=== PATIENT | female | born 1995 | race Caucasian/White ===

== ENCOUNTER 2017-09-01 13:53 | Emergency (ER) | payer OTHER ==
[~2017-09-01] VITALS: Ht 160 cm; Wt 72.6 kg
[2017-09-01] MEDS ORDERED: METOPROLOL SUCC25 MG PO (14:11)
[2017-09-01] MEDS ORDERED: CYCLOBENZAPRINE5 MG PO (15:48)
[2017-09-01] MEDS ORDERED: IBUPROFEN600 MG PO (15:48)
== END 2017-09-01 16:08 | disposition home or self-care (01) ==
LOC: ED 13:53
DX: S39.011A Strain of muscle, fascia and tendon of abdomen, initial encounter (principal); Z88.6 Allergy status to analgesic agent; X58.XXXA Exposure to other specified factors, initial encounter
CPT/HCPCS: 74176; 81001; 84703; 99284

== ENCOUNTER 2017-10-06 06:49 | Emergency (ER) | payer OTHER ==
[~2017-10-06] VITALS: Ht 160 cm; Wt 72.6 kg
--- OUTSIDE RECORDS SUMMARY | ~2017-10-06 | XMS | Clinical Summary ---
Demographics + + + | Address | [address] | | | [place] [address] | + + + | Home Phone | | + + + | Preferred Language | Unknown | + + + | Marital Status | Single | + + + | Uatsdin Affiliation | NON | + + + | Race | or | + + + | Ethnic Group | Not or | + + + Author + + + | Author | [facility] | + + + | Organization | [facility] | + + + | Address | Unknown | + + + | Phone | Unavailable | + + + Support + + + + + | Name | Relationship | Address | Phone | + + + + + | CONNOR LORD | ECON | [address] | | | [place] | | [place] [address] | | + + + + + | KYLER LORD | ECON | [address] | | | [place] | | [id number] | | | | | [address] | | + + + + + Care Team Providers + +------+ + | Care Account Support Manager Name | Role | Phone | + +------+ + | Doroteo Rucker PA-C | PP | | + +------+ + Source Comments [facility] is fully live [facility] both [facility] and [facility] Allergies + + + + + + | Active Allergy | Reactions | Severity | Noted | Comments | | | | | Date | | + + + + + + | Ketorolac | Rash | | 05/12/19 | | | | | | 17 | | + + + + + + Current Medications + + + +---------+------+------+-------+ | Prescription | Sig. | Disp. | Refills | Star | End | Statu | | | | | | t | Date | s | | | | | | Date | | | + + + +---------+------+------+-------+ | etonogestrel | 1 Device by | | | | | Activ | | (IMPLANON) 68 mg | subdermal route | | | | | e | | subdermal implant | once. | | | | | | + + + +---------+------+------+-------+ | naproxen 375 mg | Take 1 tablet by | 28 | 0 | 10/2 | | Activ | | oral tablet | mouth two times | tablet | | 7/20 | | e | | | daily. | | | 17 | | | + + + +---------+------+------+-------+ | acetaminophen 325 | Take 1 tablet by | 30 | 0 | 10/2 | | Activ | | mg oral tablet | mouth every four | tablet | | 720 | | e | | | hours as needed. | | | 17 | | | | | maximum 12 tablets | | | | | | | | per day | | | | | | + + + +---------+------+------+-------+ | metoprolol | Take 1 tablet by | 60 | 2 | 03/1 | | Activ | | tartrate 50 mg oral | mouth two times | tablet | | 05/10 | | e | | tabletIndications: | daily. | | | 18 | | | | Chronic migraine | | | | | | | | without aura without | | | | | | | | status migrainosus, | | | | | | | | not intractable | | | | | | | + + + +---------+------+------+-------+ | fluticasone 50 | Instill 2 sprays | 1 each | 1 | 03/1 | | Activ | | mcg/actuation nasal | into each nostril | | | 3/20 | | e | | spray,suspensionIndi | once daily. | | | 18 | | | | cations: Chronic | | | | | | | | seasonal allergic | | | | | | | | rhinitis due to | | | | | | | | other allergen | | | | | | | + + + +---------+------+------+-------+ | albuterol 90 | Inhale 1-2 puffs by | 1 | 1 | 03/1 | | Activ | | mcg/actuation | mouth every four | Inhaler | | 3/20 | | e | | inhalation HFA | hours as needed. | | | 18 | | | | aerosol | | | | | | | | inhalerIndications: | | | | | | | | Mild intermittent | | | | | | | | asthma without | | | | | | | | complication | | | | | | | + + + +---------+------+------+-------+ | lidocaine viscous | Gargle and spit. | 100 mL | 0 | 05/0 | | Activ | | 2 % mucous membrane | 5-10 ml three times | | | 9/20 | | e | | solution | per day as needed | | | 18 | | | | | for pain | | | | | | + + + +---------+------+------+-------+ Active Problems + + + | Problem | Noted Date | + + + | Seasonal allergic rhinitis | 06/22/2016 | + + + | Mild intermittent asthma | 03/21/2013 | + + + | Proctitis | 01/03/2013 | + + + | Lactase deficiency | 01/03/2013 | + + + | Acid reflux disease with ulcer | 12/28/2012 | + + + + + | Overview: Overview: 12/2012 in setting of negative H. Pylori. | | Treated per [facility]. Pt to take Ranitidine 300mg BID | + + + + + | Hematochezia | 11/17/2012 | + + + | Anorexia | 11/17/2012 | + + + | Depression | 11/17/2012 | + + + | Anxiety | 11/17/2012 | + + + Resolved Problems + + + + | Problem | Noted | Resolved | | | Date | Date | + + + + | care and examination | 10/08/19 | | | | 15 | 6 | + + + + | Lactose intolerance | 01/04/20 | 11/10/201 | | | 13 | 6 | + + + + | Inflammation of the rectum | 12/29/19 | | | | 13 | 6 | + + + + + + | Overview: Overview: 12/2012 Colonoscopy results yielded a | | nodular rectum of unknown etiology | + + + + + + | Gastric ulcer | 12/23/19 | | | | 13 | 6 | + + + + | Abdominal pain, bilateral lower quadrant | 11/18/19 | | | | 13 | 6 | + + + + | Nausea | 11/18/19 | | | | 13 | 6 | + + + + | Asthma | 11/18/19 | | | | 13 | 8 | + + + + Immunizations + + + + | Name | Dates Previously Given | Next Due | + + + + | DTaP | 10/28/2000, 10/28/2000, 06/25/1996, | | | | 1995, 1995, 1995 | | + + + + | FLU-Nasal | 01/03/2012 | | + + + + | Flu NOS | 03/14/2009 | | + + + + | Flu trivalent | 01/10/2008 | | | injectable pfree | | | + + + + | HPV, Quadrivalent | 11/09/2006, 07/15/2006, 05/11/2006 | | + + + + | HepA-Ped 2 Dose | 03/31/2007, 05/11/2006 | | + + + + | HepB-Peds | 1995, 1995, 1995 | | + + + + | Hib, NOS | 06/25/1996, 1995, 1995, | | | | 1995 | | + + + + | Hib-HbOC | 06/25/1996, 1995, 1995, | | | | 1995 | | + + + + | Influenza Injectable | 04/30/2015, 03/28/2014 | | | Quadrivalent (IIV4 | | | | P-Free) | | | + + + + | Influenza, seasonal, | 03/21/2013, 03/14/2009 | | | injectable | | | + + + + | Tckogoymg-G1T0-22 | 03/14/2009 | | + + + + | MCV4P | 01/03/2012, 03/31/2007 | | + + + + | MMR | 10/09/2014, 10/28/2000, 10/28/2000, | | | | 06/25/1996 | | + + + + | MPSV4 | 01/03/2012, 03/31/2007 | | + + + + | Polio-Inject | 10/28/2000, 06/25/1996, 1995, | | | | 1995, 1995 | | + + + + | Polio-Oral | 06/25/1996, 1995, 1995, | | | | 1995 | | + + + + | Td (adult), adsorbed | 05/11/2006 | | + + + + | Tdap | 08/13/2014, 05/11/2006 | | + + + + | Varicella | 07/15/2006, 07/15/2006, 01/29/1997 | | + + + + Family History + + +------+ + | Medical History | Relation | Name | Comments | + + +------+ + | Alcohol/Drug | Father | | | + + +------+ + | Hypertension | Father | | | + + +------+ + | Asthma | Mother | | | + + +------+ + | Depression | Mother | | | + + +------+ + | Headache | Mother | | migraines | + + +------+ + | Ovarian Cancer | Mother | | | + + +------+ + | Additional Family | Other | | lactose intolerance, ulcers reflux - | | History | | | grandfather | + + +------+ + | Additional Family | Other | | pancreatitis - great aunt | | History | | | | + + +------+ + | Additional Family | Other | | ibs, reflux - grandmother | | History | | | | + + +------+ + | Arthritis | Other | | great aunt | + + +------+ + | Cancer | Other | | | + + +------+ + | Heart Disease | Other | | grandmother, cousin | + + +------+ + | Alcohol/Drug | Paternal | | | | | Grandfath | | | | | er | | | + + +------+ + | Hypertension | Paternal | | | | | Grandfath | | | | | er | | | + + +------+ + | Stroke | Paternal | | | | | Grandfath | | | | | er | | | + + +------+ + | Blood Disease | Paternal | | blood clots | | | Grandmoth | | | | | er | | | + + +------+ + | Hypertension | Paternal | | | | | Grandmoth | | | | | er | | | + + +------+ + | Anesthesia | Neg Hx | | | + + +------+ + | Breast Cancer | Neg Hx | | | + + +------+ + | Prostate Cancer | Neg Hx | | | + + +------+ + + +------+--------+ + | Relation | Name | Status | Comments | + +------+--------+ + | Father | | | | + +------+--------+ + | Mother | | | | + +------+--------+ + | Other | | | | + +------+--------+ + | Other | | | | + +------+--------+ + | Other | | | | + +------+--------+ + | Other | | | | + +------+--------+ + | Other | | | | + +------+--------+ + | Other | | | | + +------+--------+ + | Paternal Grandfather | | | | + +------+--------+ + | Paternal Grandmother | | | | + +------+--------+ + Social History + + + +--------+ + | Tobacco Use | Types | Packs/Day | Years | Date | | | | | Used | | + + + +--------+ + | Current Every Day | Cigarettes | 0.25 | | Started: 2010 | | Smoker | | | | | + + + +--------+ + + +---+---+---+ | Smokeless Tobacco: | | | | | Never Used | | | | + +---+---+---+ + + | Tobacco Cessation: Ready to Quit: No; Counseling Given: Yes | + + + + +---------+ + | Alcohol Use | Drinks/We | oz/Week | Comments | | | ek | | | + + +---------+ + | Yes | 0 | 0.0 | once a month | | | Standard | | | | | drinks or | | | | | | | | | | equivalen | | | | | t | | | + + +---------+ + + + + | Sex Assigned at | Date Recorded | | | | + + + | Not on file | | + + + Last Filed Vital Signs + + + + | Vital Sign | Reading | Time Taken | + + + + | Blood Pressure | 112/82 | 06/29/2017 1:54 PM PDT | + + + + | Pulse | 88 | 06/29/2017 1:54 PM PDT | + + + + | Temperature | 37.1 C (98.8 F) | 06/29/2017 1:54 PM PDT | + + + + | Respiratory Rate | 16 | 06/28/2017 12:34 AM PDT | + + + + | Oxygen Saturation | 98% | 06/29/2017 1:54 PM PDT | + + + + | Inhaled Oxygen | - | - | | Concentration | | | + + + + | Weight | 73.5 kg (162 lb) | 06/29/2017 1:54 PM PDT | + + + + | Height | 160 cm (5' 3") | 06/29/2017 1:54 PM PDT | + + + + | Body Mass Index | 28.7 | 06/29/2017 1:54 PM PDT | + + + + Plan of Treatment + + + + + | Health Maintenance | Due Date | Last Done | Comments | + + + + + | CHOLESTEROL | | | | | SCREENING | 5 | | | + + + + + | HIV SCREEN | | | | | | 5 | | | + + + + + | TOBACCO CESSATION | | | | | INTERVENTION | 5 | | | + + + + + | CERVICAL CANCER | | | | | SCREENING (PAP | 5 | | | | SMEAR) | | | | + + + + + | Pneumococcal (Adult) | | | | | (1 of - PPSV23) | 4 | | | + + + + + | CHLAMYDIA SCREEN | | 04/10/2014, 03/05/2014 | | | | 6 | | | + + + + + | INFLUENZA VACCINE | | 04/30/2015, 03/28/2014, | | | (FLU SHOT) | 8 | 01/03/2012, Additional history | | | | | exists | | + + + + + | DEPRESSION SCREEN | | 05/04/2017, 05/04/2017 | | | | 9 | | | + + + + + | SUBSTANCE ABUSE | | 05/04/2017 | | | SCREENING | 9 | | | + + + + + | PRECONCEPTION/CONTRA | | 05/26/2017, 05/03/2017, | | | CEPTION COUNSELING | 9 | 01/01/2016, Additional history | | | (One [place] Question) | | exists | | + + + + + | Diphtheria,Tetanus,P | | 08/13/2014, 05/11/2006, | | | ertussis | 5 | 05/11/2006, Additional history | | | (DTaP/Tdap/Td) (7 - | | exists | | | Td) | | | | + + + + + | HPV (GARDASIL) | Completed | 11/09/2006, 07/15/2006, | | | | | 05/11/2006 | | + + + + + | Meningococcal ACWY | Completed | 01/03/2012, 01/03/2012, | | | | | 03/31/2007, Additional history | | | | | exists | | + + + + + Results Not on filefrom Last 3 Months Insurance + +--------+ +--------+ + + | Payer | Benefi | Subscriber | Type | Phone | Address | | | t Plan | ID | | | | | | / | | | | | | | Group | | | | | + +--------+ +--------+ + + | | | [id number] | Auto | [phone] | [address] | | | | [phone] | | [phone] | [place] | | | | | | | [phone] | + +--------+ +--------+ + + | [place] | OHP | xxxxxxxx | Medica | [phone] | [address] [address] | | | PLUS | | id | [id number] | [place] [address] | | | OPEN | | | | | | | CARD | | | | | + +--------+ +--------+ + + | PROBATION OFFICER MEDICAID | PROBATION OFFICER | xxxxxxxx | Medica | | | | | PACIFI | | id | | | | | CSOURC | | | | | | | E | | | | | + +--------+ +--------+ + + + +--------+ +--------+ + + | Guarantor Name | Accoun | Relation to | Date | Phone | Billing Address | | | t Type | Patient | of | | | | | | | | | | + +--------+ +--------+ + + | CONNOR LORD | Person | Father | [birth year] | Work: | [address] | | | al/Fam | | [phone] | [phone] [place] | | | [place] | | | [phone]: | [address] | | | | | | | | | | | | [phone] | | | | | | | [phone] | | + +--------+ +--------+ + + | GOPAL LORD | Person | Self | [birth year] | Home: | [address] | | [place]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
--- OUTSIDE RECORDS SUMMARY | ~2017-10-06 | XMS | Clinical Summary ---
Demographics + + + | Address | [address] | | | [place] [address] | + + + | Home Phone | | + + + | Preferred Language | Unknown | + + + | Marital Status | Single | + + + | Pentecostalism Affiliation | NON | + + + [...] | | [place] | | [place] [address] | | + + + + + | KYLER LORD | ECON | [address] | | | [place] | | [phone] | | | | | [phone] | | + + + + + Care Team Providers + +------+ + | Care Diabetes Territory Manager Name | Role | Phone | + +------+ + | Doroteo Rucker PA-C | PP | | + +------+ + Source Comments [facility] Allergies + + + + + [...] | | + + + + | [id number] | 03/14/2009 | | + + + [...] | | | | | | | [phone] | + +--------+ +--------+ + + | [place]ID [place] | OHP | xxxxxxxx | Medica | [phone] | [address] [address] | | | PLUS | | id | [phone] | [place] [address] | | | OPEN | | | | | | | CARD | | | | | + +--------+ +--------+ + + | RESPIRATORY SUPPORT TECHNICIAN MEDICAID | RESPIRATORY SUPPORT TECHNICIAN | xxxxxxxx | Medica | | | [...] [place] | | | [phone]: | [address] | | | | | | | [...] | [place] | | | [phone] | [phone] | + +--------+ +--------+ + + | GOPAL LORD | Third | Self | [birth year] | Home: | [address] | | [place] | [employer] Party | | 1994 | +- | [place] | | | [place] | | | [phone] | [phone] | | | [place] | | | | | + +--------+ +--------+ + +
[~2017-10-06 06:49] MED LIST: CYCLOBENZAPRINE5 MG PO; IBUPROFEN600 MG PO; METOPROLOL SUCC25 MG PO
== END 2017-10-06 07:53 | disposition home or self-care (01) ==
LOC: ED 06:49
DX: S63.501A Unspecified sprain of right wrist, initial encounter (principal); M25.511 Pain in right shoulder; F17.200 Nicotine dependence, unspecified, uncomplicated; Z88.6 Allergy status to analgesic agent; X58.XXXA Exposure to other specified factors, initial encounter; Y92.89 Other specified places as the place of occurrence of the external cause
CPT/HCPCS: 73030; 73110; 99283